=== PATIENT | male | born 1960 | race Caucasian/White ===

== ENCOUNTER → 2022-03-10 10:54 | Outpatient (CLI) | payer OTHER, SELFPAY ==
[2022-03-12 04:25] LABS: HSV1IGG < 0.91 index (0.00-0.90)
== END ==
PROVIDERS: Referring Provider Dermatology; Visit Provider Dermatology
DX: Z20.5 Contact with and (suspected) exposure to viral hepatitis (principal)
CPT/HCPCS: 36415; 86695; 86696